=== PATIENT | male | born 1960 | race Caucasian/White ===

== ENCOUNTER 2024-03-16 13:24 | Emergency (ER) | payer BC, SELFPAY ==
--- NOTE | ~2024-03-16 | CT_ITS ---
EXAMINATION: CT HEAD WITHOUT CONTRAST CT CERVICAL SPINE WITHOUT CONTRAST CLINICAL INFORMATION: Fall with head strike. COMPARISON: None TECHNIQUE: CT of the head and cervical spine were performed without intravenous contrast. Multiplanar reformats were rendered and reviewed. This CT examination was performed using dose optimization techniques as appropriate, variously including the following: *Automated exposure control *Adjustment of mA and/or kV according to patient size (this includes techniques or standardized protocols for targeted exams where dose is matched to indication/reason for exam; i.e. extremities or head) *Use of iterative reconstruction technique DLP: 1794 mGy-cm. FINDINGS: CT head: No intracranial hemorrhage, large acute infarction, or mass lesion is seen. Bilateral patchy periventricular white matter hypodensities with more focal hypodensity in the left frontal subcortical white matter. No extra-axial collection is appreciated. The ventricles are normal in size and configuration without evidence of hydrocephalus. The visualized paranasal sinuses and mastoid air cells are clear. CT cervical spine: The vertebral body heights appear maintained. No cervical spine fracture is seen. Moderate to severe disc degenerative change with bilateral neuroforaminal narrowing most notable at C5-C7. Reversal of the normal cervical lordosis, centered at C4. No significant subluxation identified. The paraspinal soft tissues appear within normal limits. The partially imaged lung apices appear clear. CT/CT head/brain wo IV con IMPRESSION: CT head: No acute intracranial finding. CT cervical spine: No cervical spine fracture or traumatic malalignment identified. Electronically signed by: Juan José Venegas MD 03/16/2024 04:52 PM [facility]
--- NOTE | ~2024-03-16 | CT_ITS ---
EXAMINATION: CT HEAD WITHOUT CONTRAST CT CERVICAL SPINE WITHOUT CONTRAST CLINICAL INFORMATION: Fall with head strike. COMPARISON: None TECHNIQUE: CT of the head and cervical spine were performed without intravenous contrast. Multiplanar reformats were rendered and reviewed. This CT examination was performed using dose optimization techniques as appropriate, variously including the following: *Automated exposure control *Adjustment of mA and/or kV according to patient size (this includes techniques or standardized protocols for targeted exams where dose is matched to indication/reason for exam; i.e. extremities or head) *Use of iterative reconstruction technique DLP: 1794 mGy-cm. FINDINGS: CT head: No intracranial hemorrhage, large acute infarction, or mass lesion is seen. Bilateral patchy periventricular white matter hypodensities with more focal hypodensity in the left frontal subcortical white matter. No extra-axial collection is appreciated. The ventricles are normal in size and configuration without evidence of hydrocephalus. The visualized paranasal sinuses and mastoid air cells are clear. CT cervical spine: The vertebral body heights appear maintained. No cervical spine fracture is seen. Moderate to severe disc degenerative change with bilateral neuroforaminal narrowing most notable at C5-C7. Reversal of the normal cervical lordosis, centered at C4. No significant subluxation identified. The paraspinal soft tissues appear within normal limits. The partially imaged lung apices appear clear. CT/CT cervical spine wo IV con IMPRESSION: CT head: No acute intracranial finding. CT cervical spine: No cervical spine fracture or traumatic malalignment identified. Electronically signed by: Juan José Venegas MD 03/16/2024 04:52 PM [facility]
--- NOTE | ~2024-03-16 | CT_ITS ---
EXAMINATION: CT CHEST WITHOUT CONTRAST CLINICAL INFORMATION: Fall. Right rib pain. COMPARISON: None available. TECHNIQUE: Multidetector volumetric CT imaging of the chest was done. Axial MIP volume rendering provided. Sagittal and coronal reformatted images were obtained. This CT examination was performed using dose optimization techniques as appropriate, variously including the following: *Automated exposure control *Adjustment of mA and/or kV according to patient size (this includes techniques or standardized protocols for targeted exams where dose is matched to indication/reason for exam; i.e. extremities or head) *Use of iterative reconstruction technique DLP: 525 mGy-cm FINDINGS: LUNGS/PLEURA: Limited by motion artifact. Bibasilar patchy densities suggesting atelectasis and/or infiltrates, right worse than left. Trace right pleural fluid. No pneumothorax identified. MEDIASTINUM: The mediastinum is normal. CORONARY ARTERY CALCIFICATION: Mild to moderate. AXILLA: No lymphadenopathy by size criteria. UPPER ABDOMEN: Unremarkable. OSSEOUS STRUCTURES: Minimally displaced fractures at the anterolateral aspects of the right fifth through seventh ribs. CT/CT chest wo IV con IMPRESSION: Minimally displaced fractures at the anterolateral aspects of the right fifth through seventh ribs. Bibasilar patchy densities suggesting atelectasis and/or infiltrates, right worse than left. Trace right pleural fluid. No pneumothorax identified. Electronically signed by: Juan José Venegas MD 03/16/2024 04:42 PM [facility]
[2024-03-16 13:40] VITALS: BP 144/89; PULSE 75; RESP 22; TEMP 36; O2SAT 92; BMI 34.0
--- NOTE | 2024-03-16 13:41 | ED_ITS ---
HPI - General Adult General Chief complaint: Fall Stated complaint: Rib injury Time Seen by Provider: 03/16/24 16:55 Source: patient Mode of arrival: ambulatory Limitations: no limitations History of Present Illness ED Provider: BAYRON SHIPLEY PA-C HPI narrative: 63 year old male presents to the ED today from Urgent Care for evaluation of right rib pain s/p mechanical fall 4 days ago. He reports tripping on a step and falling forward, hitting the right side of his head and the right side of his chest. Denies LOC. He is not on anticoagulation. Reports pain to right anterolateral ribs since the fall. He states that it was difficult to breathe as it hurts to expand his lungs. He was evaluated at urgent care today with inconclusive chest x-ray fiundings. He was sent here for further evaluation and CT scan. He states that he has been taking Advil at home without relief. His last dose was early this morning. Denies history of asthma or COPD however does admit to smoking half a pack of cigarettes daily. Denies fever, chills, headache, dizziness, SOB, wheezing, cough. Related Data Previous Rx's ?Medication ?Instructions ?Recorded oxycodone 5 mg tablet 5 mg PO Q8H PRN pain (scale score 03/16/24 7-10) #15 tabs Allergies Allergy/AdvReac Type Severity Reaction Status Date / Time No Known Allergies Allergy Verified 03/16/24 13:43 Review of Systems 2 Review of Systems: Constitutional: No fever, chills, fatigue, night sweats, weight changes ENT/Mouth: No ear pain, hearing loss, nasal congestion, sinus pain, rhinorrhea, sore throat Eyes: No eye pain, swelling, redness, vision changes, discharge Cardio: No chest pain, palpitations, DUMONT, orthopnea, peripheral edema Pulm: No SOB, cough, sputum, wheezing, dyspnea, hemoptysis GI: No nausea, vomiting, hematemesis, abdominal pain, diarrhea, constipation, hematochezia, melena : No irregular bleeding, dysuria, frequency, urgency, hesitancy, hematuria, flank pain, urinary flow changes, urinary incontinence or retention MSK: No back pain, neck pain, joint pain, myalgias, +right rib pain Skin: No lesions, rashes Neuro: No weakness, numbness, paresthesias, LOC, dizziness, headache Psych: No anxiety/panic, depression, SI/HI, AH/VH All other systems reviewed and are negative. [facility] Past Medical History Attestation statement: The following information was validated with the patient. Source: old records reviewed and nursing notes reviewed Social History Social History Advance Directives: No Advance Directives Information Provided: No Physical Exam ED Vital Signs: Vital Signs - 24 hr 03/16/24 13:40 03/16/24 16:47 03/16/24 17:06 Temperature 96.8 F 98.3 F Pulse Rate 75 67 78 Respiratory Rate 22 H 16 Blood Pressure 144/89 H 133/73 Pulse Oximetry 92 92 94 Oxygen Delivery Method Room Air Room Air Room Air 03/16/24 18:26 03/16/24 18:39 Temperature 97.8 F 97.8 F Pulse Rate 82 82 Respiratory Rate 18 18 Blood Pressure 137/89 137/89 Pulse Oximetry 93 93 Oxygen Delivery Method Room Air Room Air BMI result Body Mass Index 34.0 satting 92% on RA, vitals otherwise wnl General: Well appearing, in no acute distress. Skin: Warm, dry, intact. No rashes or lesions. Head: Small healing hematoma to right forehead along the hairline. No palpable skull fracture. No raccoon eyes. No melendez sign. EENT: Hearing is intact b/l. Conjunctiva clear. PERRLA. Moist mucous membranes.? Neck: Supple without LAD. FROM. Trachea midline.? Cardiac: RRR. +TTP over right anterolateral chest wall without overlying skin changes/ deformity. no palpable deformity or crepitus. Symmetric rise and fall of chest. Lungs: no respiratory effort, no tripoding, no accessory muscle use, breath sounds diminished to right base. Abdomen: Soft, non-tender, non-distended. No rebound tenderness or guarding. Positive BS x4. Back: No midline spinous or paraspinal tenderness. No step off deformity. Ext: Upper and lower extremities atraumatic, without tenderness, deformity, swelling or erythema. Full ROM throughout. Neuro: AOx3. Normal speech. Strength 5/5 intact throughout. Sensation intact to light touch. NV intact distally. Ambulating with steady gait. Psych: Appropriate mood and affect. Responds appropriately to questions. Course Course Course Narrative: This is a rapid medical exam performed by Dakota Lorenzana NP: Additional HPI, ROS, PE not included below will be deferred to primary provider. Patient is a 63-year-old male presenting with complaint of right sided rib pain after fall on Friday, states he fell off one step. Went to and had a CXR which was inconclusive. Plan: CTs Reevaluation(s) Reevaluation #1: 1756 -- CT head/brain without skull fracture or bleed. CT cervical spine without fracture or subluxation. CT chest showing minimally displaced fractures at the anterolateral aspects of the right 5th through 7th ribs with trace right pleural effusion. No pneumothorax. There are bibasilar patchy density suggesting atelectasis and/or infiltrates right worse than left, likely secondary to patient's history of smoking with undiagnosed underlying lung disease. I do not have concern for infectious etiology at this time. > I discussed case with thoracic surgeon, Dr. Winslow who recommends admission to medicine for pain control, pulmonary care, incentive spirometry. Will reach out to hospitalist to discuss case with anticipated admission. 1830 -- Upon discussion with patient, he does not wish to be admitted to the hospital or transferred to an acute care facility. He feels well, his pain has improved after receiving oxycodone and feels as though he can breath better with his pain controlled. He states that he would like to be discharged home as he would like to spend the holidays with his family. He is not hypoxic. He is well appearing. No evidence of pneumothorax or hemothorax. Not on AC. I feel discharge home w/ pain control, incentive spirometry and strict return precautions is reasonable. Medications Administered Discontinued Medications Generic Name Dose Route Start Last Admin Trade Name Freq PRN Reason Stop Dose Admin Oxycodone HCl 10 mg 03/16/24 17:00 03/16/24 17:16 Oxycodone Hcl Immed Release 5 Mg Tablet PO 03/16/24 17:01 10 mg ONCE ONE Administration Medical Decision Making Medical Decision Making [facility] Narrative: 63 year old male presents to the ED today from Urgent Care for evaluation of right rib pain s/p mechanical fall 4 days ago. Patient was satting 92% on room air. On ambulatory pulse ox, patient at 94%. Exam is nonfocal. PERRLA. EOMs intact without entrapment. There is a small healing hematoma to right forehead along the hairline. No palpable skull fracture. TTP over right anterolateral chest wall without overlying skin changes/ deformity. no palpable deformity or crepitus. Symmetric rise and fall of chest. No increased effort of breathing, no tripoding. Lungs with slightly diminished breath sounds to right base, otherwise clear. Differential diagnosis includes rib contusion, rib fracture, pneumothorax, hemothorax, pneumonia, scalp hematoma, skull fracture, intracranial hemorrhage, concussion, headache, flail chest Plan for imaging, pain control, re-evaluation Differential Diagnosis Differential Diagnoses: The differential diagnosis associated with the presentation includes as above. Admission/Observation Consideration of admission/observation: Escalation of care including admission/observation considered Admission for observation considered - patient declining. Consult Healthcare Provider Management of the patient was discussed with: Hospitalist (Dr. coates) and [employer] Manager (Dr. Winslow (thoracic surgery)) Lab Data MDM Lab Attestation statement: I reviewed the patient's lab results. as above. 03/16/24 18:01 03/16/24 18:01 Labs: Lab Results 03/16/24 Range/Units 18:01 WBC 11.7 H (4.8-10.8) X10*3/uL RBC 5.24 (4.60-5.80) X10*6/uL Hgb 17.1 (14.0-18.0) g/dl Hct 49.1 (42.0-52.0) % MCV 93.7 (80.0-98.0) fL MCH 32.6 (27.0-33.0) pg MCHC 34.8 (31.0-36.0) g/dl RDW 12.0 (11.0-16.0) % Plt Count 235 (160-400) X10*3/uL MPV 8.9 L (9.4-12.4) fL Immature Gran % (Auto) 0.3 (0.0-0.4) % Neut % (Auto) 78.5 H (45-73) % Lymph % (Auto) 12.2 L (20-40) % Lawrence % (Auto) 8.1 (2-11) % Eos % (Auto) 0.6 (0-4) % Baso % (Auto) 0.3 (0-2) % Lymph # (Auto) 1.4 (1.2-4.9) X10*3/uL Lawrence # (Auto) 0.9 (0.1-1.2) X10*3/uL Eos # (Auto) 0.1 (0.0-0.4) X10*3/uL Baso # (Auto) 0.0 (0.0-0.2) X10*3/uL Abs Immat Gran (auto) 0.04 H (0.00-0.03) X10*3/uL Absolute Neuts (auto) 9.1 H (2.0-8.3) x10*3/uL Absolute Nucleated RBC 0.000 (0.0-0.012) X10*3/uL Nucleated RBC % (auto) 0.0 (0.0-0.2) /100WBC PT 11.0 (10.9-12.4) SEC INR 0.9 (0.9-1.1) Sodium 136 (135-145) mmol/L Potassium 4.2 (3.3-5.1) mmol/L Chloride 100 (96-108) mmol/L Carbon Dioxide 28 (22-29) mmol/L Anion Gap 12 (12-20) BUN 10 (9-16) mg/dL Creatinine 0.93 (0.5-1.4) mg/dL Estim Creat Clear Calc 96.2 Estimated GFR > 60 Random Glucose 97 (60-115) mg/dL Calcium 9.7 (8.4-10.2) mg/dL Magnesium 2.3 (1.6-2.6) mg/dL Total Bilirubin 1.2 H (0.0-1.0) mg/dL AST 23 (5-37) U/L ALT 33 (0-40) U/L Alkaline Phosphatase 88 (39-117) U/L Total Protein 7.5 (6.5-8.0) g/dL Albumin 4.5 (3.5-5.0) g/dL Independent Interpretation I performed an independent interpretation of an: CT Scan Interpretation: CT head/brain without bleed or skull fracture CT cervical spine without fracture or subluxation CT chest with fracture of right 5th through 7th ribs, small right pleural effusion Radiology Impression Discussion of test interpretation with radiology: I have reviewed the radiologist's reading. Radiologist Impression: EXAMINATION: CT HEAD WITHOUT CONTRAST CT CERVICAL SPINE WITHOUT CONTRAST CLINICAL INFORMATION: Fall with head strike. COMPARISON: None TECHNIQUE: CT of the head and cervical spine were performed without intravenous contrast. Multiplanar reformats were rendered and reviewed. This CT examination was performed using dose optimization techniques as appropriate, variously including the following: *Automated exposure control *Adjustment of mA and/or kV according to patient size (this includes techniques or standardized protocols for targeted exams where dose is matched to indication/reason for exam; i.e. extremities or head) *Use of iterative reconstruction technique DLP: 1794 mGy-cm. FINDINGS: CT head: No intracranial hemorrhage, large acute infarction, or mass lesion is seen. Bilateral patchy periventricular white matter hypodensities with more focal hypodensity in the left frontal subcortical white matter. No extra-axial collection is appreciated. The ventricles are normal in size and configuration without evidence of hydrocephalus. The visualized paranasal sinuses and mastoid air cells are clear. CT cervical spine: The vertebral body heights appear maintained. No cervical spine fracture is seen. Moderate to severe disc degenerative change with bilateral neuroforaminal narrowing most notable at C5-C7. Reversal of the normal cervical lordosis, centered at C4. No significant subluxation identified. The paraspinal soft tissues appear within normal limits. The partially imaged lung apices appear clear. CT/CT cervical spine wo IV con IMPRESSION: CT head: No acute intracranial finding. CT cervical spine: No cervical spine fracture or traumatic malalignment identified. Electronically signed by: Juan José Venegas MD 03/16/2024 04:52 PM [facility] EXAMINATION: CT CHEST WITHOUT CONTRAST CLINICAL INFORMATION: Fall. Right rib pain. COMPARISON: None available. TECHNIQUE: Multidetector volumetric CT imaging of the chest was done. Axial MIP volume rendering provided. Sagittal and coronal reformatted images were obtained. This CT examination was performed using dose optimization techniques as appropriate, variously including the following: *Automated exposure control *Adjustment of mA and/or kV according to patient size (this includes techniques or standardized protocols for targeted exams where dose is matched to indication/reason for exam; i.e. extremities or head) *Use of iterative reconstruction technique DLP: 525 mGy-cm FINDINGS: LUNGS/PLEURA: Limited by motion artifact. Bibasilar patchy densities suggesting atelectasis and/or infiltrates, right worse than left. Trace right pleural fluid. No pneumothorax identified. MEDIASTINUM: The mediastinum is normal. CORONARY ARTERY CALCIFICATION: Mild to moderate. AXILLA: No lymphadenopathy by size criteria. UPPER ABDOMEN: Unremarkable. OSSEOUS STRUCTURES: Minimally displaced fractures at the anterolateral aspects of the right fifth through seventh ribs. CT/CT chest wo IV con IMPRESSION: Minimally displaced fractures at the anterolateral aspects of the right fifth through seventh ribs. Bibasilar patchy densities suggesting atelectasis and/or infiltrates, right worse than left. Trace right pleural fluid. No pneumothorax identified. Electronically signed by: Juan José Venegas MD 03/16/2024 04:42 PM [facility] External Record Review External record reviewed: Inpatient record Prescription Management I considered prescription management with: Pain Medication (oxycodone) Social Determinants Patient?s care significantly limited by Social Determinants of Health including: Other Social Determinant of Health Critical Care Time Critical Care Time Critical Care Time: Yes Total Critical Care Time: 35 Attestation: Critical care time in the amount of 35 minutes has been provided to the patient in terms of direct patient care, frequent reevaluation, consultation with thoracic surgery and hospitalist, review and interpretation of medical data and results, and management of potentially life-threatening conditions. This is all outside of any medical procedures. Discharge Plan Discharge Clinical Impression: Multiple rib fractures, Pleural effusion on right Patient Disposition: Home, Self-Care Instructions: Oxycodone, Rapid Release (By mouth), Rib Fracture (ED), Pleural Effusion (ED) Additional Instructions: You were evaluated in the ED today following a fall. The CT scan of your head/brain and your neck are normal. There is no intracranial bleed or fracture. The CT scan of your chest shows: CT chest wo IV con IMPRESSION: Minimally displaced fractures at the anterolateral aspects of the right fifth through seventh ribs. Bibasilar patchy densities suggesting atelectasis and/or infiltrates, right worse than left. Trace right pleural fluid. No pneumothorax identified. You were offered admission for observation however are declining at this time. Take tylenol and motrin at home for pain/ discomfort. You report improvement in pain after receiving oxycodone. This has been sent to your pharmacy for you to take as needed for break through pain/discomfort. You were also provided with an incentive spirometer and educated on how to use this. Use this multiple times throughout the day to help expand your lungs. You were also provided with a list of primary care providers to follow up with. Please call them to establish care. They will not call you. Please return with any new or worsening symptoms. In the case of an emergency call 911. Prescriptions: New oxycodone 5 mg tablet 5 mg PO Q8H PRN (Reason: pain (scale score 7-10)) Qty: 15 0RF Rx Instructions: Partial Fill upon patient request. Referrals: [facility] [place] Group] [facility]] [facility] [Provider Group] Interventions: ED Discharge Assessment Last Done: 03/16/24 18:39 Discharge Date/Time: 03/16/24 18:47 Print Language: Bermudian
[2024-03-16 16:47] VITALS: BP 133/73; PULSE 67; RESP 16; TEMP 36.8; O2SAT 92
[2024-03-16 17:06] VITALS: PULSE 78; O2SAT 94
[2024-03-16] MEDS: oxyCODONE HCl Immed Release 5 MG TABLET 10 MG PO (17:16)
[2024-03-16 18:05] LABS: MANUAL DIFF FLAG NO
[2024-03-16 18:22] LABS: Alanine Aminotransferase 33 U/L (0-40); Albumin Level 4.5 g/dL (3.5-5.0); Alkaline Phosphatase 88 U/L (39-117); Anion Gap 12 (12-20); Aspartate Amino Transferase 23 U/L (5-37); Bilirubin Total 1.2 mg/dL (0.0-1.0); Blood Urea Nitrogen 10 mg/dL (9-16); Calcium 9.7 mg/dL (8.4-10.2); Carbon Dioxide 28 mmol/L (22-29); Chloride 100 mmol/L (96-108); Creatinine Clr Calc Pharmacy 96.2; Estimated Glomerular Filt Rate > 60; Glucose Random 97 mg/dL (60-115); Magnesium 2.3 mg/dL (1.6-2.6); Potassium 4.2 mmol/L (3.3-5.1); Sodium 136 mmol/L (135-145); Total Protein 7.5 g/dL (6.5-8.0)
[2024-03-16 18:24] LABS: INTERNATIONAL NORM RATIO 0.9 (0.9-1.1)
[2024-03-16 18:26] VITALS: BP 137/89; PULSE 82; RESP 18; TEMP 36.6; O2SAT 93
[2024-03-16 18:34] LABS: Basophils Percent Auto 0.3 % (0-2); Eosinophils Absolute Auto 0.1 X10*3/uL (0.0-0.4); Eosinophils Percent Auto 0.6 % (0-4); Hematocrit 49.1 % (42.0-52.0); Hemoglobin 17.1 g/dl (14.0-18.0); Imm Gran Abs Auto 0.04 X10*3/uL (0.00-0.03); Imm Gran Pct Auto 0.3 % (0.0-0.4); Lymphocytes Absolute Auto 1.4 X10*3/uL (1.2-4.9); Lymphocytes Percent Auto 12.2 % (20-40); Mean Corpuscular HGB Conc 34.8 g/dl (31.0-36.0); Mean Corpuscular Hemoglobin 32.6 pg (27.0-33.0); Mean Corpuscular Volume 93.7 fL (80.0-98.0); Mean Platelet Volume 8.9 fL (9.4-12.4); Monocytes Absolute Auto 0.9 X10*3/uL (0.1-1.2); Monocytes Percent Auto 8.1 % (2-11); Neutrophils Absolute Auto 9.1 x10*3/uL (2.0-8.3); Neutrophils Percent Auto 78.5 % (45-73); Platelet Count 235 X10*3/uL (160-400); Red Blood Count 5.24 X10*6/uL (4.60-5.80); White Blood Count 11.7 X10*3/uL (4.8-10.8)
[2024-03-16 18:39] VITALS: BP 137/89; PULSE 82; RESP 18; TEMP 36.6; O2SAT 93
== END 2024-03-16 18:47 | disposition home or self-care (01) ==
PROVIDERS: Physician Assistant Medical; Emergency Provider Emergency Medicine
DX: R07.81 Pleurodynia (principal); R51.9 Headache, unspecified; M54.2 Cervicalgia; R07.89 Other chest pain; Z79.899 Other long term (current) drug therapy
CPT/HCPCS: 36415; 70450; 71250; 72125; 80053; 83735; 85025; 85610; 94010; 99284

== ENCOUNTER 2024-04-08 08:15 | Outpatient (AMB) | payer BC, SELFPAY ==
[2024-04-08 08:16] VITALS: BP 116/80; PULSE 58; O2SAT 98; BMI 34.0
--- NOTE | 2024-04-08 08:16 | A.OFFPC_ITS ---
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 The patient reported that he has not seen a doctor in 20 years or having a physical in 20 years. He is presenting today to have his [facility] paperwork filled out and also to return back to work. Patient reported that he went to emergency room on March 16 due to he had 4 days prior. Per patient, he felt like he had pulled a muscle after a fall, but but he knew something was wrong after he started getting congested. The patient denies sob, denies chest pain, heart palpitation, dizziness. He r eports that he thinks he could go back to work today. He reports that he only lift about 10 lbs on weight at work and his work does not involving much bending or twitching. He reports that he has been smoking for 35-40 years, but has been cutting down. He is down to 1/2 a pack a day now. He reports drinking 2-3 beers per week. Per chart review: The patient originally went to urgent care where he had a chest x-ray done was inconclusive There, he was recommended to go to the ED. In ED, the patient had a CT head/brain without skull fracture or bleed. CT cervical spine without fracture or subluxation. CT chest showing minimally displaced fractures at the anterolateral aspects of the right 5th through 7th ribs with trace right pleural effusion. No pneumothorax. There are bibasilar patchy density suggesting atelectasis and/or infiltrates right worse than left, likely secondary to rolo ent's history of smoking with undiagnosed underlying lung disease. I do not have concern for infectious etiology at this time. The case was discussed with Dr. Winslow (thoracic surgeon) who recommended admitting the patient for pulmonary care, incentive spirometry. The patient refused and reported that he was feeling much better after receiving oxycodone. Given that the patient was not on AC, he was discharged home with strict return precautions. [facility] Medical History (Updated 04/09/24 @ 04:07 by Oneal Martin MD) Multiple rib fractures Obesity (BMI 30-39.9) Shingles Surgical History (Updated 04/09/24 @ 03:50 by Oneal Martin MD) No pertinent past surgical history Family History (Updated 04/08/24 @ 10:18 by CHIARA Park) Mother No problems noted. Father FH: mental illness Social History Housing: Apartment Patient Tobacco Use Status: Current everyday Tobacco user Cigarette Packs Per Day: 0.5 Cigarettes Per Day: 10 Years Smoked: 20+ e-Cigarette/Vaping Use: Never Used Second Hand Smoke Exposure: No service: No Current occupational status: employed Current occupational exposures/hazards: No Cognitive needs: No Hearing needs: No Vision needs: Yes Questionnaire PHQ-9 Over the last 2 weeks, how often have you been bothered by any of the following problems? 1. Little interest or pleasure in doing things: not at all 2. Feeling down, depressed, or hopeless: not at all 3. Trouble falling or staying asleep, or sleeping too much: not at all 4. Feeling tired or having little energy: not at all 5. Poor appetite or overeating: not at all 6. Feeling bad about yourself - or that you are a failure or have let yourself or your family down: not at all 7. Trouble concentrating on things, such as reading the newspaper or watching television: not at all 8. Moving or speaking so slowly that other people could have noticed. Or the opposite - being so fidgety or restless that you have been moving around a lot more than usual: not at all 9. Thoughts that you would be better off or of hurting yourself in some way: not at all Total score: 0 Depression Screening Interpretation: Negative Depression Screening Done: Yes 61528 - PHQ-9 Billing: Yes Source: Developed by Drs. Kai Clemente, Jenny Gonzalez, Isaías Woody and colleagues, with an educational sue from [employer]. Thrive Questionnaire Date Thrive assessed: 04/08/24 I am a: Patient What is your living situation today?: I have a steady place to live Within the past 12 months, did the food you bought not last and you didn't have the money to get more?: Never true Within the past 12 months, did you worry whether your food would run out before you got money to buy more?: Never true Do you have trouble paying for medicines?: No Do you have trouble getting transportation to medical appointments?: No Do you have trouble paying your heating and electricity bill?: No Do you have trouble taking care of your child, family member or friend?: No Do you have trouble with day-to-day activities such as bathing, preparing meals, shopping, managing finances, etc.?: No Are you currently unemployed and looking for a job?: No Are you interested in more education?: No Please select the resources that you would like help with: None Currently or been in a relationship where the following occur: No concerns reported THRIVE Score: 0 AUDIT C Alcohol Use Questionnaire (AUDIT-C) 1. How often do you have a drink containing alcohol?: 2-4 times a month 2. How many drinks containing alcohol do you have on a typical day when you are drinking?: 1 or 2 3. How often do you have six or more drinks on one occasion?: Never Total Score: 2 Score Reviewed/Action Taken: Yes SUNSHINE-7 AMB Questionnaire SUNSHINE-7 Date SUNSHINE - 7 assessed: 04/08/24 Feeling nervous, anxious, or on edge: 0 = Not at all Not being able to stop or control worryin = Not at all Worrying too much about different things: 0 = Not at all Trouble relaxin = Not at all Being so restless that it is hard to sit still: 0 = Not at all Becoming easily annoyed or irritable: 0 = Not at all Feeling afraid as if something awful might happen: 0 = Not at all Total SUNSHINE-7 score (0-4 normal; 5-9 mild; 10-14 moderate; 15-21 severe): 0 Source: Developed by Drs. Kai Clemente, Jenny Gonzalez, Isaías Woody and colleagues, with an educational sue from [employer]. SUNSHINE-7 Assessment Billing SUNSHINE-7 Assessment Tool: SUNSHINE-7 Assessment 93472 Review of Systems Const Details: Const Denies chills, Denies fatigue, Denies fever(s), Denies headache(s) and Denies weakness ENT Denies dizziness and Denies headache(s) Card Denies chest pain, Denies lightheadedness, Denies dyspnea and Denies other (Palpitations) Resp Denies cough, Denies dyspnea, Denies wheezing and Denies other ( shortness of breath) GI Denies abdominal pain, Denies melena, Denies hematochezia, Denies change in bowel habits, Denies dyspepsia and Denies nausea Denies hematuria and Denies dysuria Musc Denies abnormal gait, Denies myalgias, Denies arthralgias, Denies numbness and Denies tingling Skin/Breast Denies rash, Denies unusual bruising and Denies wounds Neuro Denies abnormal gait, Denies dizziness, Denies headache(s), Denies memory loss, Denies numbness, Denies Sensory deficit (Neuro), Denies tingling and Denies weakness Psych Denies anxiety, Denies depression, Denies memory loss Endo Denies cold intolerance, Denies fatigue, Denies heat intolerance, Denies polydipsia and Denies polyuria Aller/Immun Denies wheezing Physical exam (Primary Care) Vital Signs: Last Vital Signs Pulse 58 04/08/24 08:16 BP 116/80 04/08/24 08:16 Pulse Ox 98 04/08/24 08:16 Oxygen Delivery Method Room Air 04/08/24 08:16 BMI result Body Mass Index 34.0 Tobacco/Smoking Status: Tobacco use Status Tobacco use date assessed 04/08/24 04/08/24 08:17 Patient Tobacco Use Status Current everyday Tobacco 04/08/24 08:26 e-Cigarette/Vaping Use Never Used 04/08/24 08:26 PHQ-9: PHQ-9 Score PHQ-9: Total score 0 04/08/24 10:22 Depression Screening Interpretation: Negative Thrive Assessment: Date of Thrive Assessment Date Thrive assessed 04/08/24 04/08/24 08:26 Currently or been in a relationship where the following occur: No concerns reported Const Other: General: no acute distress and well developed Nutritional Appearance: well nourished Orientation/consciousness: patient oriented x3 [facility] Head: Yes normocephalic and Yes atraumatic Eyes General: appearance normal, both eyes and all related structures Pupils: Equal, round and reactive pupils present EOM: EOMs intact bilaterally Resp Effort & Inspection: normal respiratory effort Auscultation: clear to auscultation bilaterally Cardio Rate: regular rate Rhythm: regular rhythm Heart sounds: S1 normal heart sound present, S2 normal heart sound present, no gallops, no murmurs and no rubs GI Palpation (GI): No Abdominal aortic bruit present, Soft to palpation, nontender, No hepatosplenomegaly present and No Rebound tenderness present Auscultation: normal bowel sounds General: Yes no CVA tenderness Back/Spine/Pelvis Back: no CVA tenderness Cervical Spine: cervical ROM normal and No Cervical spine tenderness Thoracic/Lumbar Spine: thoraco-lumbar ROM normal, No pain with thoraco-lumbar ROM, No thoracic spinal tenderness and No lumbar spinal tenderness Extrem General: Yes normal to inspection, No edema and No calf tenderness Skin General: warm and dry. Normal skin color. Normal skin turgor Lesions: no lesions Rashes: no rashes Trauma: no lacerations or abrasions Wounds: no wounds Nails: normal Neuro General: patient oriented x3, gait normal and no focal neuro deficit Cranial nerves: Yes Equal, round and reactive pupils present Cognition (Neuro): normal cognition Gait exam (Neuro): Normal gait present Sensory Exam: No Sensory deficit (Neuro) Psych Appearance: grossly normal Affect: normal affect Attitude: cooperative Thought process: Normal thought process present Results Reviewed Results Reviewed: Laboratory Tests 03/16/24 18:01 WBC 11.7 H RBC 5.24 Hgb 17.1 Hct 49.1 Neut % (Auto) 78.5 H Lymph % (Auto) 12.2 L PT 11.0 INR 0.9 Sodium 136 Potassium 4.2 Chloride 100 BUN 10 Creatinine 0.93 Estimated GFR > 60 Random Glucose 97 Calcium 9.7 Magnesium 2.3 Total Bilirubin 1.2 H AST 23 ALT 33 Alkaline Phosphatase 88 Coding Level of Care Code New Pt Level 4 (90611) Diagnoses Closed fracture of multiple ribs of right side, sequela S22.41XS Encounter type: sequela Fracture type: closed Laterality: right Heart burn R12 Smoker F17.200 Obesity (BMI 30-39.9) E66.9 Additional Codes SUNSHINE-7 Assessment Billing - SUNSHINE-7 Assessment Tool: SUNSHINE-7 Assessment 11462 ([id number]) PHQ-9 - 60298 - PHQ-9 Billing: Yes ([id number]) Assessment & Plan Assessment & Plan (1) Multiple rib fractures: Comment: minimal displaced fx at the anterolateral of right 5th through 7th Code(s): S22.49XA - Multiple fractures of ribs, unspecified side, initial encounter for closed fracture Category: Medical Qualifiers: Encounter type: sequela Fracture type: closed Laterality: right Qualified Code(s): S22.41XS - Multiple fractures of ribs, right side, sequela Plan: Resolving Patient sustained multiple right-sided rib fractures (minimally displaced fractures at the anterolateral aspects of the right 5th through 7th ribs) with trace right pleural effusion after he reportedly tripped on a step and fell forward about a month ago, hitting the right side of his head and the right side of his chest, and started experiencing increased pain over his right anterolateral ribs since X-rays of the ribs done initially at a local urgent care center were inconclusive and he was recommended to go to the ER where chest CT revealed his injuries He was advised admission to the hospital for further management but he declined and was eventually discharged back home with some Rx for pain States that his right-sided chest/rib pain has improved a lot since and is currently minimal and tolerable and patient feels that he is able to return to work and needs a medical clearance to do so He also needs his FMLA forms filled out (2) Heart burn: Code(s): R12 - Heartburn Category: Medical Plan: Reports that he gets heat burn and takes omeprazole otc with positive effect He has not been to a doctor in about 20 years and this has never been worked up The patient has an follow appt on 04/26/24, this could be reevaluate then Dietary restrictions encouraged (3) Smoker: Code(s): F17.200 - Nicotine dependence, unspecified, uncomplicated Category: Social Hx Plan: The patient reported that he has been smoking or 35-40 years. He has been cutting down, but he is not ready to stop completely Smoking cessation encouraged (4) Obesity (BMI 30-39.9): Code(s): E66.9 - Obesity, unspecified Category: Medical Plan: Discussed diet/exercise as tolerated/lose weight Plan To return as scheduled next month for his annual physical examination
== END 2024-04-08 09:01 | disposition home or self-care (01) ==
DX: S22.41XS Multiple fractures of ribs, right side, sequela (principal); E66.9 Obesity, unspecified; R12 Heartburn; Z68.31 Body mass index [BMI] 31.0-31.9, adult; F17.200 Nicotine dependence, unspecified, uncomplicated

== ENCOUNTER → 2024-04-08 08:15 | Outpatient (BNVA) | payer BC, SELFPAY | DX: S22.41XD Multiple fractures of ribs, right side, subsequent encounter for fracture with routine healing (principal); R12 Heartburn; E66.9 Obesity, unspecified; Z68.34 Body mass index [BMI] 34.0-34.9, adult; F17.200 Nicotine dependence, unspecified, uncomplicated | CPT/HCPCS: 96127 ==

== ENCOUNTER 2024-04-26 09:42 | Outpatient (AMB) | payer BC, SELFPAY ==
--- NOTE | 2024-04-26 09:53 | A.OFFPC_ITS ---
Vital Signs 04/26/24 09:55 Height 5 ft 8 in Weight 224 lb 2 oz BMI 34.1 BP 130/76 Blood Pressure Location Lt brachial Position Sitting Pulse 55 Pulse Source Pulse Oximeter Pulse Oximetry (%) 96 Oxygen Delivery Method Room Air Intake Visit Reasons: establish care Intake Note: Patient is a new patient here to establish care for wellness check. Transferring care from unknown (No pcp in years). Medical records have not been requested and have not received. Pt decline flu shot today. 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 Patient states he went back to work last week after rib fracture has not been having any pain. Occasionally he will get a deep ache that resolved spontaneously. He was last seen by primary care 15-20 years ago and is not up-to-date on routine screenings. He is not interested in smoking cessation at this time and continues to smoke half a pack cigarettes a day for the last 40 years. He states he does have a poor diet and eats lots of junk food. Does have 1 concern of easy bruising but when he does bleed it does not last long. [facility] Medical History Multiple rib fractures Obesity (BMI 30-39.9) Shingles Surgical History No pertinent past surgical history Family History Mother No problems noted. Father FH: mental illness Social History Housing: Apartment Alcohol intake: current Alcohol intake frequency: a few times a month Patient Tobacco Use Status: Current everyday Tobacco user Cigarette Packs Per Day: 0.5 Cigarettes Per Day: 10 Years Smoked: 20+ e-Cigarette/Vaping Use: Never Used Second Hand Smoke Exposure: Yes service: No Current occupational status: employed Current occupational exposures/hazards: No Cognitive needs: No Hearing needs: No Vision needs: Yes Questionnaire PHQ-9 Over the last 2 weeks, how often have you been bothered by any of the following problems? 1. Little interest or pleasure in doing things: not at all 2. Feeling down, depressed, or hopeless: not at all 3. Trouble falling or staying asleep, or sleeping too much: not at all 4. Feeling tired or having little energy: not at all 5. Poor appetite or overeating: not at all 6. Feeling bad about yourself - or that you are a failure or have let yourself or your family down: not at all 7. Trouble concentrating on things, such as reading the newspaper or watching television: not at all 8. Moving or speaking so slowly that other people could have noticed. Or the opposite - being so fidgety or restless that you have been moving around a lot more than usual: not at all 9. Thoughts that you would be better off or of hurting yourself in some way: not at all Total score: 0 Depression Screening Interpretation: Negative Depression Screening Done: Yes Source: Developed by Drs. Kai Clemente, Jenny Gonzalez, Isaías Woody and colleagues, with an educational sue from [employer]. Thrive Questionnaire Date Thrive assessed: 04/26/24 I am a: Patient What is your living situation today?: I have a steady place to live Within the past 12 months, did the food you bought not last and you didn't have the money to get more?: Never true Within the past 12 months, did you worry whether your food would run out before you got money to buy more?: Never true Do you have trouble paying for medicines?: No Do you have trouble getting transportation to medical appointments?: No Do you have trouble paying your heating and electricity bill?: No Do you have trouble taking care of your child, family member or friend?: No Do you have trouble with day-to-day activities such as bathing, preparing meals, shopping, managing finances, etc.?: No Are you currently unemployed and looking for a job?: No Are you interested in more education?: No Please select the resources that you would like help with: None Currently or been in a relationship where the following occur: No concerns reported THRIVE Score: 0 AUDIT C Alcohol Use Questionnaire (AUDIT-C) 1. How often do you have a drink containing alcohol?: 2-4 times a month 2. How many drinks containing alcohol do you have on a typical day when you are drinking?: 3 or 4 3. How often do you have six or more drinks on one occasion?: Never Total Score: 3 SUNSHINE-7 AMB Questionnaire SUNSHINE-7 Date SUNSHINE - 7 assessed: 04/26/24 Feeling nervous, anxious, or on edge: 0 = Not at all Not being able to stop or control worryin = Not at all Worrying too much about different things: 0 = Not at all Trouble relaxin = Not at all Being so restless that it is hard to sit still: 0 = Not at all Becoming easily annoyed or irritable: 0 = Not at all Feeling afraid as if something awful might happen: 0 = Not at all Total SUNSHINE-7 score (0-4 normal; 5-9 mild; 10-14 moderate; 15-21 severe): 0 Source: Developed by Drs. Kai Clemente, Jenny Gonzalez, Isaías Woody and colleagues, with an educational sue from [employer]. Review of Systems Const Denies body aches, Denies chills, Denies fever(s) and Denies poor appetite Card Denies chest pain, Denies syncope, Denies edema, Denies irregular heart rhythm, Denies lightheadedness and Denies dyspnea Resp Denies cough and Denies dyspnea GI Denies abdominal pain, Denies constipation, Denies diarrhea, Denies nausea and Denies vomiting Reports no additional complaints Musc Reports no additional complaints and Denies abnormal gait Skin/Breast Reports system reviewed and no additional complaints, except as documented Neuro Denies abnormal gait and Denies syncope Psych Reports no additional complaints Physical exam (Primary Care) Vital Signs: Last Vital Signs Pulse 55 04/26/24 09:55 BP 130/76 04/26/24 09:55 Pulse Ox 96 04/26/24 09:55 Oxygen Delivery Method Room Air 04/26/24 09:55 BMI result Body Mass Index 34.1 Tobacco/Smoking Status: Tobacco use Status Tobacco use date assessed 04/26/24 04/26/24 10:03 Patient Tobacco Use Status Current everyday Tobacco 04/26/24 10:02 e-Cigarette/Vaping Use Never Used 04/26/24 10:02 Are you ready to quit: No Tobacco cessation counseling provided: Yes Items discussed: Nicotine replacement Relapse Prevention: weight gain after smoking is common and discussed dietary, exercise and/or lifestyle changes Number of minutes spent counselin CPT code: 52483 - 4-10 Minutes PHQ-9: PHQ-9 Score PHQ-9: Total score 0 04/26/24 10:11 Depression Screening Interpretation: Negative Thrive Assessment: Date of Thrive Assessment Date Thrive assessed 04/26/24 04/26/24 09:54 Currently or been in a relationship where the following occur: No concerns reported Const General: cooperative, healthy appearing, comfortable and no acute distress Orientation/consciousness: patient oriented x3 HENMT Head: Yes normocephalic Ears: hearing grossly normal bilaterally General nose exam: Normal external nose present Eyes General: appearance normal, both eyes and all related structures Conjunctivae: conjunctivae normal Neck Neck: Yes full ROM and Yes no lymphadenopathy Resp Effort & Inspection: normal respiratory effort Auscultation: clear to auscultation bilaterally, no crackles, no rales, no rhonchi and no wheezes Cardio Rate: regular rate Rhythm: regular rhythm Skin General skin exam: no rashes or lesions noted Neuro General: patient oriented x3 Gait exam (Neuro): Normal gait present Extrem General: Yes normal to inspection, Yes full ROM and No edema Psych Affect: normal affect Attitude: cooperative Insight: Good insight present (Psych) Judgement: Good judgement present (Psych) Coding Level of Care Code New Pt Level 4 (02938) Diagnoses Obesity (BMI 30-39.9) E66.9 Smoker F17.200 Heart burn R12 Easy bruising R23.3 Colon cancer screening Z12.11 Additional Codes Vital Signs *Quality* - CPT code: 77872 - 4-10 Minutes ([id number]) Assessment & Plan Assessment & Plan (1) Obesity (BMI 30-39.9): Code(s): E66.9 - Obesity, unspecified Category: Medical Plan: Healthy diet and regular exercise is encouraged. (2) Smoker: Code(s): F17.200 - Nicotine dependence, unspecified, uncomplicated Category: Social Hx Plan: Smoking cigarettes and the use of tobacco can be harmful. We discussed the importance of stopping and options to aid in smoking cessation. Not interested in smoking cessation at this time referral placed to lung cancer screening program. (3) Heart burn: Code(s): R12 - Heartburn Category: Medical Plan: Avoid trigger foods such as citrus, tomato products, soda, caffeine, spicy foods and other foods that may be irritating to your stomach. Avoid laying flat 3-4 hours after eating and elevate the head of the bed 30 degrees to prevent acid from moving into the esophagus. Continue on omeprazole 20 mg (4) Easy bruising: Code(s): R23.3 - Spontaneous ecchymoses Category: Medical Plan: Patient complaining of easy bruising does have bruises on bilateral arms. Ordered for updated blood work in addition to coagulation studies. (5) Colon cancer screening: Code(s): Z12.11 - Encounter for screening for malignant neoplasm of colon Category: Medical Plan: Referral placed to GI for colonoscopy. Plan Ordered for updated blood work and we will have patient follow up in 3 months. This note was constructed using voice recognition software. While every effort has been made to ensure accuracy and scout, still areas may have been included sometimes these areas may affect the content or meeting of the given symptoms. Total time spent caring for the patient today was 30 minutes. This includes time spent before the visit reviewing the chart, time spent during the visit, and time spent after the visit and documentation. Orders: Orders Comprehensive Met. Panel Today Z00.00 - Encounter for general adult medical examination without abnormal findings Complete Blood Count Auto Diff Today Z00.00 - Encounter for general adult medical examination without abnormal findings TSH reflex Free T4 Today Z00.00 - Encounter for general adult medical examina tion without abnormal findings Vitamin D 25-OH Total Today Z00.00 - Encounter for general adult medical examination without abnormal findings PSA, Ultra Sensitive Today Z00.00 - Encounter for general adult medical examination without abnormal findings Free T4 (Free Thyroxine) Today Z00.00 - Encounter for general adult medical examination without abnormal findings Vitamin B12 and Folate Today Z00.00 - Encounter for general adult medical examination without abnormal findings Lipid Panel Today E78.00 - Pure hypercholesterolemia, unspecified Hemoglobin A1c Today E11.65 - Type 2 diabetes mellitus with hyperglycemia Mixing Study (PT/PTT) Today R23.3 - Spontaneous ecchymoses Prothrombin Time INR Today R23.3 - Spontaneous ecchymoses Referrals Lung Cancer Screening Referral F17.200 - Nicotine dependence, unspecified, uncomplicated Gastroenterology Referral Z12.11 - Encounter for screening for malignant neoplasm of colon
[2024-04-26 09:55] VITALS: BP 130/76; PULSE 55; O2SAT 96; BMI 34.1
== END 2024-04-26 10:35 | disposition home or self-care (01) ==
DX: R12 Heartburn (principal); E66.9 Obesity, unspecified; Z68.34 Body mass index [BMI] 34.0-34.9, adult; F17.200 Nicotine dependence, unspecified, uncomplicated; R23.3 Spontaneous ecchymoses; Z12.11 Encounter for screening for malignant neoplasm of colon

== ENCOUNTER 2024-07-26 09:40 | Outpatient (AMB) | payer BC, SELFPAY ==
[2024-07-26 09:45] VITALS: BP 142/70; PULSE 57; TEMP 36.3; O2SAT 96; BMI 34.0
--- NOTE | 2024-07-26 09:45 | MHC.PC.OV ---
Vital Signs 07/26/24 09:45 07/26/24 10:23 Height 5 ft 8 in Weight 223 lb 8 oz BMI 34.0 BP 142/70 H 130/78 Blood Pressure Location Lt brachial Lt brachial Position Sitting Sitting Pulse 57 Pulse Source Pulse Oximeter Temp 97.3 F Temp Source Temporal Artery Scan Pulse Oximetry (%) 96 Oxygen Delivery Method Room Air Intake Visit Reasons: annual exam with blood work Intake Note: Patient is here today for a physical. 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 Presenting for a wellness visit and follow-up. The patient has a history of smoking and is currently uninterested in cessation efforts despite awareness of health risks. The patient's gastroesophageal reflux disease is being managed with omeprazole, which the patient takes regularly; notes increased symptoms if doses are missed. The patient reports minor repetitive bruising attributed to activities at work, with no significant bleeding disorders or anticoagulant use. Colonoscopy: Appt with GI in October 2024 Lung cancer screening: awaiting schedule 02/2025 PSA: due [facility] Medical History History of shingles Nicotine dependence, cigarettes, uncomplicated Multiple rib fractures Obesity (BMI 30-39.9) Surgical History No pertinent past surgical history Family History Mother No problems noted. Father FH: mental illness Social History Housing: Apartment Alcohol intake: current Alcohol intake frequency: a few times a month Patient Tobacco Use Status: Current everyday Tobacco user Tobacco use type: Cigarette Cigarette Packs Per Day: 0.5 Cigarettes Per Day: 10 Years Smoked: 20+ e-Cigarette/Vaping Use: Never Used Second Hand Smoke Exposure: Yes service: No Current occupational status: employed Current occupational exposures/hazards: No Cognitive needs: No Hearing needs: No Vision needs: Yes Questionnaire PHQ-9 Over the last 2 weeks, how often have you been bothered by any of the following problems? Depression Screening Interpretation: Negative Depression Screening Done: Yes Source: Developed by Drs. Kai Clemente, Jenny Gonzalez, Isaías Woody and colleagues, with an educational sue from [employer]. Thrive Questionnaire Date Thrive assessed: 04/26/24 I am a: Patient What is your living situation today?: I have a steady place to live Within the past 12 months, did the food you bought not last and you didn't have the money to get more?: Never true Within the past 12 months, did you worry whether your food would run out before you got money to buy more?: Never true Do you have trouble paying for medicines?: No Do you have trouble getting transportation to medical appointments?: No Do you have trouble paying your heating and electricity bill?: No Do you have trouble taking care of your child, family member or friend?: No Do you have trouble with day-to-day activities such as bathing, preparing meals, shopping, managing finances, etc.?: No Are you currently unemployed and looking for a job?: No Are you interested in more education?: No Please select the resources that you would like help with: None Currently or been in a relationship where the following occur: No concerns reported THRIVE Score: 0 SUNSHINE-7 AMB Questionnaire SUNSHINE-7 Date SUNSHINE - 7 assessed: 04/26/24 Source: Developed by Drs. Kai Clemente, Jenny Gonzalez, Isaías Woody and colleagues, with an educational sue from [employer]. Review of Systems Const Denies body aches, Denies fatigue, Denies fever(s), Denies frequent falls, Denies headache(s) and Denies weakness Eyes Reports no additional complaints and Denies change in vision ENT Denies dizziness, Denies facial pain, Denies headache(s) and Denies nasal congestion Card Denies chest pain, Denies syncope, Denies irregular heart rhythm, Denies lightheadedness and Denies dyspnea Resp Denies cough and Denies dyspnea GI Denies abdominal pain, Denies constipation, Denies dyspepsia, Denies diarrhea, Denies nausea and Denies vomiting Denies dysuria, Denies urinary frequency, Denies urinary hesitancy and Denies urinary urgency Musc Denies back pain and Denies myalgias Skin/Breast Reports system reviewed and no additional complaints, except as documented Neuro Denies dizziness, Denies syncope, Denies frequent falls, Denies headache(s) and Denies weakness Psych Reports no additional complaints Endo Denies fatigue Physical exam (Primary Care) Vital Signs: Last Vital Signs Temp 97.3 F 07/26/24 09:45 Pulse 57 07/26/24 09:45 BP 142/70 H 07/26/24 09:45 Pulse Ox 96 07/26/24 09:45 Oxygen Delivery Method Room Air 07/26/24 09:45 Care Plan Goal for BP management: Blood pressure normalized once retaken BMI result Body Mass Index 34.0 BMI Assessment/Plan discussion: High BMI High, discussed plan: lifestyle, dietary and physical activity Tobacco/Smoking Status: Tobacco use Status Tobacco use date assessed 07/26/24 07/26/24 09:51 Patient Tobacco Use Status Current everyday Tobacco 07/26/24 09:51 Tobacco use type Cigarette 07/26/24 09:51 e-Cigarette/Vaping Use Never Used 07/26/24 09:51 Are you ready to quit: No Depression Screening Interpretation: Negative Thrive Assessment: Date of Thrive Assessment Date Thrive assessed 04/26/24 07/26/24 09:51 Currently or been in a relationship where the following occur: No concerns reported Const General: cooperative, healthy appearing, comfortable and no acute distress Orientation/consciousness: patient oriented x3 HENMT Head: Yes normocephalic Ears: hearing grossly normal bilaterally, external ears normal, TM's normal bilaterally and EAC's normal General nose exam: Normal external nose present Face and sinus: Yes normal facial exam and Yes sinuses nontender Mouth: Normal oral and palatal mucosa present and tongue normal Throat: Yes posterior oropharynx normal Eyes General: appearance normal, both eyes and all related structures Conjunctivae: conjunctivae normal Pupils: Equal, round and reactive pupils present EOM: EOMs intact bilaterally and No Nystagmus present Neck Neck: Yes normal visual inspection, Yes full ROM and Yes no lymphadenopathy Chest Chest palpation & inspection: normal inspection of the chest Resp Effort & Inspection: normal respiratory effort Auscultation: clear to auscultation bilaterally, no crackles, no rales, no rhonchi, no wheezes and breath sounds present Cardio Rate: regular rate Rhythm: regular rhythm Peripheral pulses: radial pulses present and dorsalis pedis present GI Inspection: Yes normal to inspection and No Abdominal wall edema Palpation (GI): Soft to palpation, not firm and nontender Auscultation: normal bowel sounds Rectal Exam - Male: Yes deferred General: Yes no CVA tenderness Back/Spine/Pelvis Back: no CVA tenderness Skin General skin exam: no rashes or lesions noted Neuro General: patient oriented x3 Cranial nerves: Yes Equal, round and reactive pupils present, Yes Midline tongue present, Yes Ability to bilaterally elevate shoulders present and No Nystagmus present Gait exam (Neuro): Normal gait present Extrem General: Yes normal to inspection, Yes full ROM, No no pedal edema and No edema Psych Speech and movement: Normal speech and movement present Affect: normal affect Insight: Good insight present (Psych) Judgement: Good judgement present (Psych) Coding Level of Care Code Est Pt Prev Care 40-64y(90886) Diagnoses Nicotine dependence, cigarettes, uncomplicated F17.210 Colon cancer screening Z12.11 Easy bruising R23.3 Obesity (BMI 30-39.9) E66.9 Heart burn R12 Annual physical exam Z00.00 Assessment & Plan Assessment & Plan (1) Nicotine dependence, cigarettes, uncomplicated: Comment: (1/2ppd x 40yrs) Code(s): F17.210 - Nicotine dependence, cigarettes, uncomplicated Category: Medical Plan: Smoking cigarettes and the use of tobacco can be harmful. We discussed the importance of stopping and options to aid in smoking cessation. Not interested in smoking cessation at this time referral placed to lung cancer screening program. (2) Colon cancer screening: Code(s): Z12.11 - Encounter for screening for malignant neoplasm of colon Category: Medical Plan: Referral was placed to GI at last visit. (3) Easy bruising: Code(s): R23.3 - Spontaneous ecchymoses Category: Medical Plan: Reminded patient about blood work. (4) Obesity (BMI 30-39.9): Code(s): E66.9 - Obesity, unspecified Category: Medical Plan: Healthy diet and regular exercise is encouraged. (5) Heart burn: Code(s): R12 - Heartburn Category: Medical Plan: Avoid trigger foods such as citrus, tomato products, soda, caffeine, spicy foods and other foods that may be irritating to your stomach. Avoid laying flat 3-4 hours after eating and elevate the head of the bed 30 degrees to prevent acid from moving into the esophagus. Continue on omeprazole 20 mg (6) Annual physical exam: Code(s): Z00.00 - Encounter for general adult medical examination without abnormal findings Category: Medical Plan: Healthy diet and regular exercise is encouraged. The patient's smoking status was addressed with smoking cessation advice reiterated. For gastroesophageal reflux disease, the patient was informed of prescription options to countercost of [id number] medications. Preventative measures include eye examination referral and pending health screenings for lung cancer and colonoscopy. Reminded patient about blood work. Plan to follow up in 6 months or sooner if new problems arise or pending blood work evaluation. Plan This note was constructed using voice recognition software. While every effort has been made to ensure accuracy and eddy current inspector, still areas may have been included sometimes these areas may affect the content or meeting of the given symptoms. Total time spent caring for the patient today was 30 minutes. This includes time spent before the visit reviewing the chart, time spent during the visit, and time spent after the visit and documentation. Patient was informed and verbally consented to the use of an ambient scribe for clinic note documentation during this visit. Orders: Referrals Optometry Referral Z00.00 - Encounter for general adult medical examination without abnormal findings
[2024-07-26 10:23] VITALS: BP 130/78
== END 2024-07-26 10:21 | disposition home or self-care (01) ==
LOC: HO.HMCH 09:40
DX: Z00.00 Encounter for general adult medical examination without abnormal findings (principal); R23.3 Spontaneous ecchymoses; E66.9 Obesity, unspecified; Z68.34 Body mass index [BMI] 34.0-34.9, adult; F17.210 Nicotine dependence, cigarettes, uncomplicated; Z12.11 Encounter for screening for malignant neoplasm of colon; R12 Heartburn

== ENCOUNTER → 2024-07-26 09:40 | Outpatient (BNVA) | payer BC, SELFPAY | DX: Z13.89 Encounter for screening for other disorder (principal) ==

== ENCOUNTER 2024-10-19 08:58 | Outpatient (AMB) | payer BC, SELFPAY ==
--- NOTE | 2024-10-19 09:01 | MHC.OFFVIS ---
Vital Signs 10/19/24 09:05 Height 5 ft 8 in Weight 228 lb BMI 34.7 BP 142/80 H Blood Pressure Location Rt brachial Position Sitting Pulse 60 Pulse Source Pulse Oximeter Pulse Oximetry (%) 96 Oxygen Delivery Method Room Air Intake Visit Reasons: [place] Screening Intake Note: New pt for initial colo screening. CC; C.O. GERD hx, currently well treated with Prilosec OTC. Pt states he had horrible reflux prior to taking omeprazole. Pt denies any additional sx or concerns. No pertinent FMHx or prior surgical hx. 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 male here today for pre colonoscopy screening.? Patient was sent to us by his PCP.? Never had colonoscopy in the past. Uses Prilosec for acid reflux. Patient denies any gastrointestinal symptoms in the past or at present.? Denies any personal or family history of gastrointestinal disease, colon polyps, or CRC.? Denies history of difficulty with sedation or anesthesia in the past.? Negative for history of sleep apnea.? Denies any history of cardiac, renal, pulmonary, or hepatic disease.?? No history of infectious? diseases like hepatitis A, B, C, HIV or tuberculosis.? Patient is not on any anticoagulation [facility] Medical History History of shingles Nicotine dependence, cigarettes, uncomplicated Multiple rib fractures Obesity (BMI 30-39.9) Surgical History No pertinent past surgical history Family History Mother No problems noted. Father FH: mental illness Social History Housing: Apartment Alcohol intake: current Alcohol intake frequency: a few times a month Patient Tobacco Use Status: Current everyday Tobacco user Tobacco use type: Cigarette Cigarette Packs Per Day: 0.5 Cigarettes Per Day: 10 Years Smoked: 20+ e-Cigarette/Vaping Use: Never Used Second Hand Smoke Exposure: Yes service: No Current occupational status: employed Current occupational exposures/hazards: No Cognitive needs: No Hearing needs: No Vision needs: Yes Review of Systems Const Denies weight gain and Denies weight loss ENT Reports no additional complaints, Denies dysphagia and Denies odynophagia Card Reports no additional complaints Resp Reports no additional complaints GI Denies abdominal pain, Denies belching, Denies melena, Denies bloating, Denies change in bowel habits, Denies dysphagia, Denies excessive flatus, Denies dyspepsia, Denies heartburn, Denies diarrhea, Denies loose stools, Denies nausea, Denies odynophagia and Denies vomiting Reports no additional complaints Musc Reports no additional complaints Neuro Reports no additional complaints Psych Reports no additional complaints Endo Reports no additional complaints Physical Exam Vital Signs: Last Vital Signs Pulse 60 10/19/24 09:05 BP 142/80 H 10/19/24 09:05 Pulse Ox 96 10/19/24 09:05 Oxygen Delivery Method Room Air 10/19/24 09:05 BMI result Body Mass Index 34.7 Const General: healthy appearing, no acute distress and well developed Nutritional Appearance: well nourished and obese Orientation/consciousness: patient oriented x3 Resp Effort & Inspection: normal respiratory effort, able to speak in complete sentences, no tracheal deviation and symmetric chest movement Auscultation: clear to auscultation bilaterally Cardio Rate: regular rate GI Inspection: Yes normal to inspection, No distended and Yes obesity Palpation (GI): Soft to palpation, not firm, nontender and No hepatosplenomegaly present Auscultation: normal bowel sounds General: Yes no CVA tenderness Back/Spine/Pelvis Back: no CVA tenderness Skin General skin exam: elasticity normal, turgor normal and dry skin Neuro General: patient oriented x3 Psych Appearance: grossly normal Mental Status: mental status grossly normal Assessment & Plan Assessment & Plan (1) Colon cancer screening: Code(s): Z12.11 - Encounter for screening for malignant neoplasm of colon Category: Medical (2) Heart burn: Code(s): R12 - Heartburn Category: Medical Plan Patient denies any GI, cardiac or respiratory symptoms.? However patient admits to be using Prilosec for reflux. Patient reports that he uses daily and it is working for him. Occasional constipation. Will send extra Dulcolax so patient can start taking it few days before procedure. Denies any issues with anesthesia in the past.? Denies any history of sleep apnea.? No history infectious diseases in the past or present.? Not on any anticoagulation therapy.? No family or personal history of colon cancer or polyps.? Patient denies melena, hematochezia, unintentional weight loss or ribbon like stools.? Discussed at length the pre-procedure,? prep, diet & medications as well as what to expect prior, during and after the procedure.?? Stressed the importance of good bowel prep.? Recommended the use of Vaseline or Calmoseptine OTC & baby wipes with bowel movements to promote comfort.? ?Patient verbalizes understanding and agrees to plan of care.? He was given the opportunity to ask questions and all questions answered.? We will see him after the procedure.? Medications: New omeprazole 20 mg PO DAILY 30 caps 4RF bisacodyl (Dulcolax (bisacodyl)) Start taking 2 tablet every night 7 days before the procedure and 1 day before procedure take 2 tablets at noon time followed by MiraLax prep 10 mg (2 x 5 mg) PO BEDTIME 14 tabs 0RF Z12.11 - Encounter for screening for malignant neoplasm of colon bisacodyl (Dulcolax (bisacodyl)) take 4 tabs at noon the day before your colonoscopy 20 mg (4 x 5 mg) PO ONCE 4 tabs 0RF constipation 1 day Z12.11 - Encounter for screening for malignant neoplasm of colon polyethylene glycol 3350 (Miralax) As directed by gastroenterology department at [facility] 238 grams PO ONCE 238 grams 0RF Z12.11 - Encounter for screening for malignant neoplasm of colon Coding Level of Care Code New Pt Level 3 (91780) Diagnoses Colon cancer screening Z12.11 Heart burn R12 Time Spent (min) 40 Comment 30 minutes spent with patient and additional 10 minutes spent reviewing her records
[2024-10-19 09:05] VITALS: BP 142/80; PULSE 60; O2SAT 96; BMI 34.7
== END 2024-10-19 10:17 | disposition home or self-care (01) ==
LOC: HO.HGI 08:58
PROVIDERS: Visit Provider Nurse Practitioner Family
DX: Z01.818 Encounter for other preprocedural examination (principal); Z12.11 Encounter for screening for malignant neoplasm of colon; R12 Heartburn
CPT/HCPCS: S0285

== ENCOUNTER 2024-10-19 08:58 | Outpatient (REF) | payer BC, SELFPAY ==
[2024-10-19 09:56] LABS: MANUAL DIFF FLAG NO
[2024-10-19 10:35] LABS: Hematocrit 47.0 % (42.0-52.0); Hemoglobin 15.9 g/dl (14.0-18.0); Imm Gran Abs Auto 0.03 X10*3/uL (0.00-0.03); Imm Gran Pct Auto 0.4 % (0.0-0.4); Lymphocytes Absolute Auto 1.2 X10*3/uL (1.2-4.9); Mean Corpuscular HGB Conc 33.8 g/dl (31.0-36.0); Mean Corpuscular Hemoglobin 32.3 pg (27.0-33.0); Mean Corpuscular Volume 95.3 fL (80.0-98.0); NRBC Abs Auto 0.000 X10*3/uL (0.0-0.012); NRBC Pct Auto 0.0 /100WBC (0.0-0.2); Platelet Count 252 X10*3/uL (160-400); Red Blood Count 4.93 X10*6/uL (4.60-5.80); White Blood Count 7.0 X10*3/uL (4.8-10.8)
[2024-10-19 10:38] LABS: INTERNATIONAL NORM RATIO 0.9 (0.9-1.1); Prothrombin Time 10.7 SEC (10.9-12.4)
[2024-10-19 10:45] LABS: Partial Thromboplastin Time 31.3 SEC (26.0-36.8)
[2024-10-19 10:55] LABS: Hemoglobin A1C 143.8510 umol/L; Total Hemoglobin (HGBA1C) 4103.5650 umol/L
[2024-10-19 11:21] LABS: Alanine Aminotransferase 25 U/L (0-40); Albumin Level 4.4 g/dL (3.5-5.0); Alkaline Phosphatase 80 U/L (39-117); Anion Gap 11 (12-20); Aspartate Amino Transferase 21 U/L (5-37); Blood Urea Nitrogen 12 mg/dL (9-16); Calcium 9.6 mg/dL (8.4-10.2); Carbon Dioxide 27 mmol/L (22-29); Chloride 103 mmol/L (96-108); Cholesterol 213 mg/dL (<200); Estimated Glomerular Filt Rate > 60; HDL Cholesterol 50 mg/dL (>40); Potassium 4.0 mmol/L (3.3-5.1); Sodium 137 mmol/L (135-145); Total Protein 7.0 g/dL (6.5-8.0); Triglycerides 96 mg/dL (<150)
[2024-10-19 11:40] LABS: Folate 10.6 ng/mL (> or = 4.0); Free T4 (Free Thyroxine) 1.06 ng/dL (0.71-1.85); Vitamin B12 253 pg/mL (200-900)
[2024-10-27 00:04] LABS: PSA, Ultra Sensitive 1.03 ng/mL
== END 2024-10-19 08:59 | disposition home or self-care (01) ==
LOC: HO.LAB 08:58
PROVIDERS: Visit Provider Nurse Practitioner Family
DX: Z00.00 Encounter for general adult medical examination without abnormal findings (principal); E78.00 Pure hypercholesterolemia, unspecified; R23.3 Spontaneous ecchymoses; E11.65 Type 2 diabetes mellitus with hyperglycemia; Z12.5 Encounter for screening for malignant neoplasm of prostate; R12 Heartburn; Z12.11 Encounter for screening for malignant neoplasm of colon
CPT/HCPCS: 36415; 80053; 80061; 82306; 82607; 82746; 83036; 84153; 84439; 84443; 85025; 85610; 85611; 85730; 85732

== ENCOUNTER 2025-01-25 10:18 | Outpatient (AMB) | payer BC, SELFPAY ==
[2025-01-25 10:27] VITALS: BP 116/62; PULSE 72; RESP 18; TEMP 36.3; O2SAT 94; BMI 35.6
--- NOTE | 2025-01-25 10:27 | MHC.PC.OV ---
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 by: Self / Same As Patient Allergies No Known Allergies Allergy (Verified 01/25/25 10:50) Medication List - Last Reconciled 01/25/25 by Josselin Dasilva PA-C bisacodyl (Dulcolax (bisacodyl)) 10 mg (2 x 5 mg) PO BEDTIME bisacodyl (Dulcolax (bisacodyl)) 20 mg (4 x 5 mg) PO ONCE 1 day omeprazole 20 mg PO DAILY polyethylene glycol 3350 (Miralax) 238 grams PO ONCE Tobacco use date assessed: 01/25/25 Dental Screening Dental Screen Date: 01/25/25 Did you have a dental visit in the last 12 months?: No Did you have a dental problem in the last 6 months where you did not have access to dental care?: No Was dental information given to patient?: No HPI 6 mo f/u HPI Details 64-year-old male with past medical history of GERD, obesity, tobacco abuse last seen 07/2024 coming in for follow up. In review of the notes, patient was seen by GI 10/2024 started on Omeprazole for heart burn and ordered for colonoscopy. Presenting for a routine follow-up and preventative care visit. Cholesterol levels were previously noted as slightly abnormal. The patient is advised to repeat fasting cholesterol labs and to work on dietary changes. The patient smokes cigarettes and is considering quitting. Discussed options like nicotine replacement and medications, but prefers to try quitting independently. Experiences heartburn, especially after late-night meals. Continues on omeprazole with occasional symptoms. [facility] Medical History History of shingles Nicotine dependence, cigarettes, uncomplicated Multiple rib fractures Obesity (BMI 30-39.9) Surgical History No pertinent past surgical history Family History Mother No problems noted. Father FH: mental illness Social History Housing: Apartment Alcohol intake: current Alcohol intake frequency: a few times a month Patient Tobacco Use Status: Current everyday Tobacco user Tobacco use type: Cigarette Cigarette Packs Per Day: 0.5 Cigarettes Per Day: 10 Years Smoked: 20+ Packs Per Year: 0 Packs per year/per ci.00 e-Cigarette/Vaping Use: Never Used Second Hand Smoke Exposure: Yes service: No Current occupational status: employed Current occupational exposures/hazards: No Cognitive needs: No Hearing needs: No Vision needs: Yes Questionnaire Thrive Questionnaire Date Thrive assessed: 04/26/24 I am a: Patient What is your living situation today?: I have a steady place to live Within the past 12 months, did the food you bought not last and you didn't have the money to get more?: Never true Within the past 12 months, did you worry whether your food would run out before you got money to buy more?: Never true Do you have trouble paying for medicines?: No Do you have trouble getting transportation to medical appointments?: No Do you have trouble paying your heating and electricity bill?: No Do you have trouble taking care of your child, family member or friend?: No Do you have trouble with day-to-day activities such as bathing, preparing meals, shopping, managing finances, etc.?: No Are you currently unemployed and looking for a job?: No Are you interested in more education?: No Please select the resources that you would like help with: None Currently or been in a relationship where the following occur: No concerns reported THRIVE Score: 0 SUNSHINE-7 AMB Questionnaire SUNSHINE-7 Date SUNSHINE - 7 assessed: 04/26/24 Source: Developed by Drs. Kai Clemente, Jenny Gonzalez, Isaías Woody and colleagues, with an educational sue from [employer]. Review of Systems Const Denies body aches, Denies chills, Denies fever(s), Denies headache(s) and Denies poor appetite Eyes Reports no additional complaints ENT Denies dizziness and Denies headache(s) Card Denies chest pain, Denies syncope, Denies edema, Denies irregular heart rhythm, Denies lightheadedness and Denies dyspnea Resp Denies cough and Denies dyspnea GI Denies abdominal pain, Reports heartburn, Denies nausea and Denies vomiting Reports no additional complaints Musc Reports no additional complaints and Denies abnormal gait Skin/Breast Reports system reviewed and no additional complaints, except as documented Neuro Denies abnormal gait, Denies dizziness, Denies syncope and Denies headache(s) Psych Reports no additional complaints Physical exam (Primary Care) Vital Signs: Last Vital Signs Temp 97.3 F 01/25/25 10:27 Pulse 72 01/25/25 10:27 Resp 18 01/25/25 10:27 BP 116/62 01/25/25 10:27 Pulse Ox 94 01/25/25 10:27 Oxygen Delivery Method Room Air 01/25/25 10:27 BMI result Body Mass Index 35.6 Tobacco/Smoking Status: Tobacco use Status Tobacco use date assessed 01/25/25 01/25/25 10:34 Patient Tobacco Use Status Current everyday Tobacco 01/25/25 10:34 Tobacco use type Cigarette 01/25/25 10:34 e-Cigarette/Vaping Use Never Used 01/25/25 10:34 Thrive Assessment: Date of Thrive Assessment Date Thrive assessed 04/26/24 01/25/25 10:34 Currently or been in a relationship where the following occur: No concerns reported Const General: cooperative, healthy appearing, comfortable and no acute distress Orientation/consciousness: patient oriented x3 HENMT Head: Yes normocephalic Ears: hearing grossly normal bilaterally General nose exam: Normal external nose present Eyes General: appearance normal, both eyes and all related structures Conjunctivae: conjunctivae normal Neck Neck: Yes full ROM and Yes no lymphadenopathy Resp Effort & Inspection: normal respiratory effort Auscultation: clear to auscultation bilaterally, no crackles, no rales, no rhonchi and no wheezes Cardio Rate: regular rate Rhythm: regular rhythm Skin General skin exam: no rashes or lesions noted Neuro General: patient oriented x3 Gait exam (Neuro): Normal gait present Extrem General: Yes normal to inspection, Yes full ROM and No edema Psych Affect: normal affect Attitude: cooperative Insight: Good insight present (Psych) Judgement: Good judgement present (Psych) Coding Level of Care Code Est Pt Level 3 (85156) Diagnoses Nicotine dependence, cigarettes, uncomplicated F17.210 Obesity (BMI 30-39.9) E66.9 Heart burn R12 Hypercholesteremia E78.00 Assessment & Plan Assessment & Plan (1) Nicotine dependence, cigarettes, uncomplicated: Comment: (1/2ppd x 40yrs) Code(s): F17.210 - Nicotine dependence, cigarettes, uncomplicated Category: Medical Plan: Smoking cigarettes and the use of tobacco can be harmful. We discussed the importance of stopping and options to aid in smoking cessation. Lung cancer screening scheduled for 02/2025 interest in quitting but would like to try himself. (2) Obesity (BMI 30-39.9): Code(s): E66.9 - Obesity, unspecified Category: Medical Plan: Healthy diet and regular exercise is encouraged. (3) Heart burn: Code(s): R12 - Heartburn Category: Medical Plan: Avoid trigger foods such as citrus, tomato products, soda, caffeine, spicy foods and other foods that may be irritating to your stomach. Avoid laying flat 3-4 hours after eating and elevate the head of the bed 30 degrees to prevent acid from moving into the esophagus. Continue on omeprazole 20 mg (4) Hypercholesteremia: Code(s): E78.00 - Pure hypercholesterolemia, unspecified Category: Medical Plan: Avoid foods that are high in cholesterol such as red meat, fried foods, eggs and baked goods. Triglyceride goal of less than 150 and LDL goal of less than 130. Reminded about blood work and lifestyle modification. Plan This note was constructed using voice recognition software. While every effort has been made to ensure accuracy and commercial credit officer, still areas may have been included sometimes these areas may affect the content or meeting of the given symptoms. Total time spent caring for the patient today was 20 minutes. This includes time spent before the visit reviewing the chart, time spent during the visit, and time spent after the visit and documentation. Patient was informed and verbally consented to the use of an ambient scribe for clinic note documentation during this visit. Medications: Refilled omeprazole 20 mg PO DAILY 90 caps 4RF
== END 2025-01-25 11:09 | disposition home or self-care (01) ==
LOC: HO.HMCH 10:18
DX: R12 Heartburn (principal); F17.210 Nicotine dependence, cigarettes, uncomplicated; E66.9 Obesity, unspecified; Z68.35 Body mass index [BMI] 35.0-35.9, adult; E78.00 Pure hypercholesterolemia, unspecified

== ENCOUNTER 2025-03-04 10:32 | Outpatient (AMB) | payer BC, SELFPAY ==
--- NOTE | 2025-03-04 08:04 | A.OFFVIS_ITS ---
Intake Visit Reasons: Current Smoker Allergies No Known Allergies Allergy (Verified 01/25/25 10:50) HPI HPI Current Smoker: Details: Initial visit for this 64yo smoker with a 35+PYH. Patient started smoking at age 17 for 47 years at 1/2-1ppd. Working to cut down and quit now at about 1/4ppd. . Denies marijuana use. Denies second hand smoke exposure. Denies exposure to chemicals or substances like asbestos. . Known family history of lung cancer. Mother age 65 later stage at dx - lived 10yrs after dx. Denies personal history of cancers. Denies chest CT in last year. . Denies recent travel outside the [place]. Denies recent respiratory illness or recent hospitalization for respiratory issues. Denies testing positive for COVID. Admits receiving COVID Vaccine. . Denies fever, chills, new/worsening cough, hemoptysis, hoarseness or dysphagia. Denies significant chest pain, significant dyspnea or unintentional weight loss. Patient Lung Cancer Screening Questionnaire reviewed with patient by provider. . Shared Decision Making Completed. Patient meets criteria. Discussed in detail with patient, the risk vs benefit of LDCT screening. Patient consents to proceed with scan. Discussed smoking cessation. [facility] Medical History (Updated 03/04/25 @ 10:43 by Michelle Patino PA-C) Vitamin D deficiency Nicotine dependence, cigarettes, uncomplicated History of shingles History of rib fracture Obesity (BMI 30-39.9) Surgical History No pertinent past surgical history Family History (Updated 03/04/25 @ 10:43 by Michelle Patino PA-C) Mother Lung cancer Father FH: mental illness Social History (Updated 03/04/25 @ 10:43 by Michelle Patino PA-C) Housing: Apartment Alcohol intake: current Alcohol intake frequency: a few times a month Patient Tobacco Use Status: Current everyday Tobacco user Tobacco use type: Cigarette Cigarette Packs Per Day: 0.5 Cigarettes Per Day: 10 Years Smoked: (onset 17yo, 1/2-1ppd x 47yrs, now 1/2ppd - 35+pyh) e-Cigarette/Vaping Use: Never Used Second Hand Smoke Exposure: Yes service: No Current occupational status: employed Current occupational exposures/hazards: No Cognitive needs: No Hearing needs: No Vision needs: Yes Assessment & Plan Assessment & Plan (1) Nicotine dependence, cigarettes, uncomplicated: Comment: (onset 17yo, 1/2-1ppd x 47yrs, now 1/2ppd - 35+pyh) Code(s): F17.210 - Nicotine dependence, cigarettes, uncomplicated Category: Medical Plan: - SDM visit completed today in office. - Patient meets criteria for LDCT for lung cancer screening purposes and is asymptomatic. - Smoking cessation counseling offered. Patients can always call [phone]. - Will arrange for a LDCT scan of the chest for screening purposes at [facility]. - Risks, benefits, and alternatives were discussed in detail and the patient agrees to proceed. - Risks discussed include but are not limited to: radiation exposure, anxiety during testing and while awaiting results, false negatives, false positives and possibility of additional intervention such as further imaging or surgical procedures for benign disease. - Benefits are obviously detection of lung cancer at an early stage which can lead to improved outcomes. - Discussed the importance of screening program compliance with adherence to yearly LDCT scan as scheduled - or sooner interval scans for personalized screening regimen. - Discussed follow up plan. Our office will send a letter discussing results and if needed set up phone call and office visit based on CT findings. - Patient educated on results categorization and the management decisions for suspicious findings potentially found on the screening LDCT scan. Any patient with a Lung RADS score of 3 or 4 will be reviewed by a multidisciplinary team at [facility] to form a plan of action in regards to scan findings. - If further work up is warranted for a suspicious lung finding this will be followed by the Lung Cancer Screening program in conjunction with the Thoracic Surgery Department at [facility]. - A copy of the office note and LDCT will be sent to the patient's PCP - as well as documentation on any associated further plans of care. - Incidental findings on LDCT are the PCP's responsibility. These findings are indicated with an S finding on the LDCT Assessment. A note discussing the findings will be sent to the PCP who is then responsible for further management. - All questions answered.? Coding Level of Care Code Lung Cancer Screening G0296 Diagnoses Nicotine dependence, cigarettes, uncomplicated F17.210
== END 2025-03-04 13:10 | disposition home or self-care (01) ==
LOC: HO.HPS 10:33
PROVIDERS: Visit Provider Physician Assistant Medical
DX: F17.210 Nicotine dependence, cigarettes, uncomplicated (principal)
CPT/HCPCS: G0296

== ENCOUNTER 2025-03-04 10:55 | Outpatient (REF) | payer BC, SELFPAY ==
--- NOTE | ~2025-03-04 | CT_ITS ---
EXAMINATION: CT LUNG SCREENING HISTORY: F17.210 - Nicotine dependence, cigarettes, uncomplicated TECHNIQUE: Low dose axial images were obtained from the sternal notch to upper abdomen without IV contrast per standard departmental protocol. Sagittal and coronal reformatted images were also obtained and reviewed. One or more of the following techniques was used for dose reduction: Automated exposure control, adjustment of the mA and/or kV according to patient size, use of iterative reconstruction technique. DLP: 97 mGy-cm COMPARISON: Previous chest CT February 2024 FINDINGS: Lung nodules: 4 mm right lower lobe nodule axial image 79 series 5. 2 x 4 mm peripheral or subpleural right lower lobe nodule adjacent to the major fissure axial image 77 series 5. Comparison with prior exam difficult due to motion artifact but these are probably unchanged. 2 mm right upper lobe nodule axial image 45 and 46 series 5. 2 mm right lower lobe nodule axial image 100 series 5. 4 mm left upper lobe nodule axial image 40 series 5 also probably unchanged from previous exam.. 2 mm left lower lobe nodule axial image 95 series 5. 3 mm left lower lobe nodule axial image 87 series 5. Emphysema: none Coronary Calcification: moderate Aortic Arch Calcification: none Potentially Significant Incidentals : none Additional Chest Findings: There is no pleural or pericardial effusion. No mediastinal or axillary lymphadenopathy is identified. Normal heart size. No pericardial effusion. Normal thyroid gland. Visualized upper abdomen: Limited due to low-dose technique. The visualized portions of the liver, spleen, and adrenals have an unremarkable unenhanced appearance. Diverticulosis of the colon. Old right rib fractures. Degenerative changes of the spine. CT/CT lung screening IMPRESSION: Small pulmonary nodules, largest measuring 4 mm. LUNG-RADS ASSESSMENT: Lung-RADS 2: Benign MANAGEMENT: Continue annual screening with LDCT in 12 months Category S: N/A Electronically signed by: Ce Abrams MD 03/04/2025 12:39 PM [facility]
[2025-03-04 13:45] LABS: Cholesterol 208 mg/dL (<200); HDL Cholesterol 46 mg/dL (>40); Triglycerides 75 mg/dL (<150)
== END 2025-03-04 10:56 | disposition home or self-care (01) ==
LOC: HO.CT 10:55
PROVIDERS: Visit Provider Physician Assistant Medical
DX: Z12.2 Encounter for screening for malignant neoplasm of respiratory organs (principal); F17.210 Nicotine dependence, cigarettes, uncomplicated; E78.00 Pure hypercholesterolemia, unspecified
CPT/HCPCS: 36415; 71271; 80061

== ENCOUNTER → 2025-03-04 10:57 | Outpatient (BNV) | payer BC, SELFPAY | PROVIDERS: Visit Provider Radiology Diagnostic Radiology | DX: F17.210 Nicotine dependence, cigarettes, uncomplicated (principal) | CPT/HCPCS: 71271 ==

== ENCOUNTER 2025-03-10 08:37 | Day surgery (SDC) | payer BC, SELFPAY ==
--- NOTE | 2025-03-08 09:09 | P.CONAN_ITS ---
Documented by User: Kalli Hanson NP 03/08/25 09:09 HPI - Anesthesia Eval Consult details Narrative: 64yo M for Colonoscopy PMFSH Active Problems Active Problems: All Active Problems Vitamin D deficiency (Acute) Hypercholesteremia (Acute) Nicotine dependence, cigarettes, uncomplicated (Acute) Colon cancer screening (Acute) Easy bruising (Acute) Obesity (BMI 30-39.9) (Acute) Heart burn (Acute) Past Medical History Medical History Vitamin D deficiency Nicotine dependence, cigarettes, uncomplicated History of shingles History of rib fracture Obesity (BMI 30-39.9) Family History Family History Mother Lung cancer Father FH: mental illness Surgical History Surgical History Hx of wisdom tooth extraction Social History Social History Housing: Apartment Are you a primary medicare specialist to a significant other at home: No Do you presently have visiting nurse or other home services: No Alcohol intake: current Alcohol intake frequency: a few times a month Patient Tobacco Use Status: Current everyday Tobacco user Tobacco use type: Cigarette Cigarette Packs Per Day: 0.5 Cigarettes Per Day: 10 Years Smoked: (onset 17yo, 1/2-1ppd x 47yrs, now 1/2ppd - 35+pyh) Smoked in Last 30 Days: Yes e-Cigarette/Vaping Use: Never Used Patient Interested in Nicotine Replacement: No Second Hand Smoke Exposure: Yes Have you been hit, kicked, punched, or otherwise hurt by someone within the past year? If so, by whom?: No Are you DNR?: No Advance Directives: No Advance Directives Information Provided: Yes service: No Current occupational status: employed Current occupational exposures/hazards: No Cognitive needs: No Hearing needs: No Vision needs: Yes Meds Allergies Allergy/AdvReac Type Severity Reaction Status Date / Time No Known Allergies Allergy Verified 03/10/25 10:10 Assessment and Plan Assessment Anesthesia Assessment: Chart Reviewed Documented by User: Chelsey Narayan MD 03/10/25 10:50 PMFSH Past Medical History Medical History Vitamin D deficiency Nicotine dependence, cigarettes, uncomplicated History of shingles History of rib fracture Obesity (BMI 30-39.9) Family History Family History Mother Lung cancer Father FH: mental illness Family history of problems with anesthesia: No Surgical History Surgical History Hx of wisdom tooth extraction History of Problems with Anesthesia: No Social History Social History Housing: Apartment Are you a primary medicare specialist to a significant other at home: No Do you presently have visiting nurse or other home services: No Alcohol intake: current Alcohol intake frequency: a few times a month Patient Tobacco Use Status: Current everyday Tobacco user Tobacco use type: Cigarette Cigarette Packs Per Day: 0.5 Cigarettes Per Day: 10 Years Smoked: (onset 17yo, 1/2-1ppd x 47yrs, now 1/2ppd - 35+pyh) Smoked in Last 30 Days: Yes e-Cigarette/Vaping Use: Never Used Patient Interested in Nicotine Replacement: No Second Hand Smoke Exposure: Yes Have you been hit, kicked, punched, or otherwise hurt by someone within the past year? If so, by whom?: No Are you DNR?: No Advance Directives: No Advance Directives Information Provided: Yes service: No Current occupational status: employed Current occupational exposures/hazards: No Cognitive needs: No Hearing needs: No Vision needs: Yes Meds Allergies Allergy/AdvReac Type Severity Reaction Status Date / Time No Known Allergies Allergy Verified 03/10/25 10:10 Exam Airway Mallampati Class: II TM Dist: >3cm Neck ROM: Full Heart: rrr Lungs: cta Assessment and Plan Assessment Anesthesia Assessment: Anesthesia Plan Discussed Final Anesthetic Review Family History of Problems with Anesthesia: No History of Problems with Anesthesia: No NPO: Yes ASA Class: II Final Preanesthetic Review: No Changes in Pt Med Stat, Meds/Allgs Chart Reviewed, Consent Obtained/Reviewed and Anes Risks/Benef Reviewed Patient Risk: Intermediate (obesity) Procedure Risk: Low Anesthetic Plan Anesthetic Plan: MAC: and Agree w/ Assess. and Plan Disposition: Standard PACU
[2025-03-08 14:11] VITALS: BMI 35.6
[2025-03-10 09:51] VITALS: BMI 35.5
[2025-03-10] MEDS: Lactated Ringers 1,000 ML 100 ML IVCONT (10:02)
[2025-03-10 10:03] VITALS: BP 139/80; PULSE 66; RESP 18; TEMP 36.7; O2SAT 96
--- NOTE | 2025-03-10 10:38 | MHC.SHP ---
Pre-Procedural Eval Section A - 24 Hr Update-Section A only Date of Service: 03/10/25 Section B - Complete if H&P > 30 days Chief Complaint: screening Relevant Family History (Specify if Yes): No Relevant Social History: Tobacco Use Present Medications: see Short Stay Collaborative assessment Medical History: Significant History ( History of shingles Nicotine dependence, cigarettes, uncomplicated Multiple rib fractures Obesity (BMI 30-39.9)) History of Previous Operations: No relevant previous surgery Allergies: Allergies Allergy/AdvReac Type Severity Reaction Status Date / Time No Known Allergies Allergy Verified 03/10/25 10:10 Review of Systems Sugical H&P ROS: Negative: Constitution, Cardiovascular, Respiratory, Neurological, Psychiatric, Hem-Onc, Allergic/Immunologic, Gastrointestinal, Genitourinary, Musculoskeletal, Integumentary, Endocrine and Eyes/Ears/Nose/Throat Exam Surgical H&P Exam: Normal: HEENT, Normal: Heart, Normal: Lungs, Normal: Extremities, Normal: Abdomen, Normal: Skin and Normal: Neurological Plan Diagnosis/Plan: Unchanged I have reviewed the history and physical and performed a pertinent physical examination on my patient. No changes have occurred unless specified. Time Spent With Patient Time: Total time managing care of this patient today ____ minutes.
--- NOTE | 2025-03-10 11:48 | P.OPN-COLO_ITS ---
Colonoscopy Operative Note Operative Note Date of Service: 03/10/25 Narrative: Operative Information Procedure Description: Colonoscopy Indication: screening Anesthesia: MAC COLONOSCOPY Instrument: Olympus variable stiffness pediatric scope 190L Colonoscopy Monitoring: Vital signs and clinical assessment, continuous EKG monitoring, Pulse oximetry, Carbon Dioxide monitoring and blood pressure monitoring were done throughout the procedure. Colon withdrawal time was 18 minutes. Procedure: The patient was placed in the left lateral decubitis position and pre-procedure medications were administered. After a digital rectal examination of the ano-rectum, the video colonoscope was inserted into the rectum and advanced through the colon to the cecum/TI. The colonoscope was slowly withdrawn in a retrograde panoramic fashion and the colon mucosa was carefully examined including a retroflexed view of the rectum. Findings and interventions are described below. Procedure Difficulty: easy Findings: Terminal Ileum-normal Cecum:normal Ascending Colon: normal Transverse Colon - 7-8 mm sessile polyp removed with cold snare Descending Colon: 7-8 mm sessile polyp removed with cold snare Sigmoid Colon: mild diverticulosis, 12-14 mm pedunculated polyp, injected with epinephrine then removed with cold snare with 2 clips applied to stalk. Rectum: Retroflexion with small internal hemorrhoids seen, grade I Anorectum - normal Intervention: cold snare and epinphrine injection, clips Colon preparation: [place] Bowel Preparation Scale Right colon; 2 Transverse colon: 2 Left colon; 2 (0 = Unprepared colon segment with mucosa not seen due to solid stool that cannot be cleared. 1 = Portion of mucosa of the colon segment seen, but other areas of the colon segment not well seen due to staining, residual stool and/or opaque liquid. 2 = Minor amount of residual staining, small fragments of stool and/or opaque liquid, but mucosa of colon segment seen well. 3 = Entire mucosa of colon segment seen well with no residual staining, small fragments of stool or opaque liquid) Impression and Post Procedure Diagnosis: diverticulosis colon polyps x 3 internal hemorrhoids Plan: High fiber diet leaflet Avoid straining at stool, epsom salts and sitz bath, anusol supps or cream Repeat Colonoscopy in 3 years due to polyps or earlier if clinically indicated Above findings were reviewed with the patient and relevant handouts were provided if indicated.
[2025-03-10 11:54] VITALS: BP 125/72; PULSE 69; RESP 16; TEMP 37.2; O2SAT 94
[2025-03-10 12:08] VITALS: BP 138/78; PULSE 61; RESP 16; TEMP 36.8; O2SAT 97
== END 2025-03-10 12:23 | disposition home or self-care (01) ==
PROVIDERS: Visit Provider Internal Medicine Gastroenterology
PROC: 0DJD8ZZ Inspection of Lower Intestinal Tract, Via Natural or Artificial Opening Endoscopic (ICD-10-PCS; CPT 45378; principal; 2025-03-10 11:50)
DX: Z12.11 Encounter for screening for malignant neoplasm of colon (principal); D12.3 Benign neoplasm of transverse colon; D12.5 Benign neoplasm of sigmoid colon; K63.5 Polyp of colon; K57.30 Diverticulosis of large intestine without perforation or abscess without bleeding; K64.0 First degree hemorrhoids; E66.9 Obesity, unspecified; Z68.34 Body mass index [BMI] 34.0-34.9, adult; R12 Heartburn; Z86.19 Personal history of other infectious and parasitic diseases; Z87.81 Personal history of (healed) traumatic fracture; Z79.899 Other long term (current) drug therapy; F17.210 Nicotine dependence, cigarettes, uncomplicated
CPT/HCPCS: 45385; 45381; 88305; J0168; J2003; J2704

== ENCOUNTER → 2025-03-10 08:37 | Outpatient (BNV) | payer BC, SELFPAY | PROVIDERS: Visit Provider Internal Medicine Gastroenterology | DX: Z12.11 Encounter for screening for malignant neoplasm of colon (principal); K63.5 Polyp of colon; K57.30 Diverticulosis of large intestine without perforation or abscess without bleeding; K64.0 First degree hemorrhoids | CPT/HCPCS: 45385 ==